=== PATIENT | male | born 1990 | race Two or more races ===

== ENCOUNTER 2023-09-11 15:26 | Emergency (ER) | payer SELFPAY ==
[~2023-09-11] VITALS: Ht 175.3 cm; Wt 70.0 kg
[2023-09-11 15:46] VITALS: O2SAT 98
[2023-09-11 16:59] VITALS: BP 153/95; PULSE 105; RESP 18
[2023-09-11] MEDS: ONDANSETRON HCL 4MG/2ML INJ IV ONE (16:59)
[2023-09-11] MEDS: TETANUS, DIPHTHERIA, PERTUSSIS VAC/PF 0.5ML (>10YR OLD) IM ONE (16:59)
[2023-09-11] MEDS: MORPHINE SULFATE 4 MG/ML INJ (FOR IV/IM USE) IV ONE (16:59)
[2023-09-11] MEDS: VANCOMYCIN 1G PREMIX 200 ML IV SCH (17:00)
[2023-09-11] MEDS ORDERED: DOXY100T2 MT (19:20)
[2023-09-11 19:46] VITALS: TEMP 98.6
[2023-09-11] MEDS: ACETAMINOPHEN 325MG TABLET PO NR (19:46)
[2023-09-11] MEDS ORDERED: PIPERACILLIN/TAZO 3.375G/50ML 50 ML IV SCH (22:00)
== END 2023-09-11 20:09 | disposition home or self-care (01) ==
LOC: ER 15:26
DX: S51.832A Puncture wound without foreign body of left forearm, initial encounter (principal); W54.0XXA Bitten by dog, initial encounter; Y93.89 Activity, other specified; Y92.89 Other specified places as the place of occurrence of the external cause; Y99.8 Other external cause status
CPT/HCPCS: 73080; 73090; 90715; 12002; 90471; 96365; 96375; 99284; J2405; J3370; J2270; Z7610 ×2